=== PATIENT | female | born 1930 | race Caucasian/White ===

== ENCOUNTER 2017-03-11 12:19 | Inpatient (IN) | payer OTHER ==
[~2017-03-11] VITALS: Ht 152.4 cm; Wt 73.6 kg
[~2017-03-11 12:19] MED LIST: ADVIL200 MG PO; Flagyl PO; HYDROCHLOROTHIA25 MG PO; IMMUNOGLOBULIN IV; REQUIP1 MG PO; TYLENOL325 M1 PO; ULTRAM50 MG PO; [UNRECOGNIZED DRUG - OTHER]
[2017-03-11 13:24] LABS: BASOPHIL COUNT 0.1 K/uL (0-0.1); EOSINOPHIL (%) 0 % (0-5); HEMATOCRIT 39.6 % (36.0-46.0); IMMATURE GRANULOCYTE COUNT 0.7 K/uL; INSTRUMENT ABS NEUTROPHIL CT 18.9 K/uL; LYMPHOCYTE COUNT 1.1 K/uL (1.0-2.8); MCH 28.4 PG (29.0-34.0); MCHC 32.3 G/DL (30.0-36.0); MCV 87.8 FL (83-99); MEAN PLAT.VOLUME 9.3 uM^3 (9.5-12.4); MONOCYTE (%) 9.5 % (3-12); MONOCYTE COUNT 2.2 K/uL (0-0.8); NEUTROPHIL (%) 82.6 % (45-76); NEUTROPHIL COUNT 18.9 K/uL (1.8-6.4); PLATELET COUNT 388 K/uL (156-360); RBC DIS.WIDTH-CV 13.4 % (11.8-14.6); RED BLOOD COUNT 4.51 M/uL (3.80-5.20); WHITE BLOOD COUNT 22.8 K/uL (4.1-10.2)
[2017-03-11 13:34] LABS: CHLORIDE 106 mEq/L (99-109); MAGNESIUM 1.6 mg/dL (1.3-2.7); POTASSIUM 4.6 mEq/L (3.7-5.4); SODIUM 141 mEq/L (136-147)
[2017-03-11 13:36] LABS: GLUCOSE 163 mg/dL (70-99)
[2017-03-11 13:37] LABS: ANION GAP 8 MEQ/L (2-14)
[2017-03-11 13:38] LABS: TOTAL BILIRUBIN 0.7 mg/dL (0.0-1.0)
[2017-03-11 13:39] LABS: ALKALINE PHOSPHATASE 115 IU/L (3-129)
[2017-03-11 13:40] LABS: GFR ESTIMATE (CALCULATED) > 59 mL/min/
[2017-03-11 13:41] LABS: UREA NITROGEN (BUN) 26 mg/dL (9-23)
[2017-03-11 13:44] LABS: TROP-I INTERPRETATION NEGATIVE; TROPONIN-I < 0.01 ng/mL (0.0-0.30)
[2017-03-11 15:06] LABS: ADD MIUA? YES; BILIRUBIN NEGATIVE; BLOOD NEGATIVE; COLOR AMBER ((YELLOW)); GLUCOSE (STRIP) NEGATIVE; KETONES NEGATIVE; LEUKOCYTES NEGATIVE; NITRITE NEGATIVE; PROTEIN (STRIP) 30; SPECIFIC GRAVITY 1.023 (1.000-1.030)
[2017-03-11 15:29] LABS: BACTERIA NONE SEEN /HPF; EPITHELIAL CELLS RARE /HPF; MUCUS TRACE /LPF; RED BLOOD CELLS 0-5 /HPF (0-5); UCUL ADDED? NO; WHITE BLOOD CELLS 0-5 /HPF (0-5)
[2017-03-11 19:45] VITALS: BP 168/88
[2017-03-12] VITALS (7 sets, daily range): BP systolic 120–166; BP diastolic 60–88
[2017-03-12 06:19] LABS: HEMATOCRIT 33.1 % (36.0-46.0); MCH 29.4 PG (29.0-34.0); MCHC 33.2 G/DL (30.0-36.0); MCV 88.5 FL (83-99); MEAN PLAT.VOLUME 9.6 uM^3 (9.5-12.4); PLATELET COUNT 331 K/uL (156-360); RBC DIS.WIDTH-CV 13.6 % (11.8-14.6); RBC DIS.WIDTH-SD 43.8 % (39-53); RED BLOOD COUNT 3.74 M/uL (3.80-5.20); WHITE BLOOD COUNT 19.4 K/uL (4.1-10.2)
[2017-03-12 06:42] LABS: ANION GAP 8 MEQ/L (2-14); CHLORIDE 111 MEQ/L (99-109); GFR ESTIMATE (CALCULATED) > 59 mL/min/; SAMPLE HEMOLYSIS CHECK 0; SAMPLE ICTERIC CHECK 0; SAMPLE LIPEMIA CHECK 0; SODIUM 144 MEQ/L (136-147); UREA NITROGEN (BUN) 20 mg/dL (9-23)
[2017-03-12 06:44] LABS: GLUCOSE 110 mg/dL (70-99)
[2017-03-13 03:52] VITALS: BP 123/73
[2017-03-13 06:22] LABS: HEMATOCRIT 32.5 % (36.0-46.0); MCH 28.7 PG (29.0-34.0); MCHC 32.3 G/DL (30.0-36.0); MCV 88.8 FL (83-99); MEAN PLAT.VOLUME 9.6 uM^3 (9.5-12.4); PLATELET COUNT 358 K/uL (156-360); RBC DIS.WIDTH-CV 13.6 % (11.8-14.6); RBC DIS.WIDTH-SD 44.3 % (39-53); RED BLOOD COUNT 3.66 M/uL (3.80-5.20); WHITE BLOOD COUNT 17.3 K/uL (4.1-10.2)
[2017-03-13 06:50] LABS: ANION GAP 8 MEQ/L (2-14); CHLORIDE 115 MEQ/L (99-109); GFR ESTIMATE (CALCULATED) > 59 mL/min/; GLUCOSE 128 mg/dL (70-99); POTASSIUM 3.8 MEQ/L (3.7-5.4); SAMPLE HEMOLYSIS CHECK 0; SAMPLE ICTERIC CHECK 0; SAMPLE LIPEMIA CHECK 0; SODIUM 148 MEQ/L (136-147); UREA NITROGEN (BUN) 20 mg/dL (9-23)
[2017-03-13 07:24] VITALS: BP 140/82
[2017-03-13 11:15] VITALS: BP 129/63
[2017-03-13 15:20] VITALS: BP 125/80
[2017-03-13 20:08] VITALS: BP 117/55
[2017-03-14 00:02] VITALS: BP 130/82
[2017-03-14 03:59] VITALS: BP 157/76
[2017-03-14 06:32] LABS: BASOPHIL COUNT 0.1 K/uL (0-0.1); EOSINOPHIL (%) 1.4 % (0-5); EOSINOPHIL COUNT 0.2 K/uL (0-0.3); HEMATOCRIT 36.1 % (36.0-46.0); IMMATURE GRANULOCYTE COUNT 0.7 K/uL; INSTRUMENT ABS NEUTROPHIL CT 12.8 K/uL; LYMPHOCYTE COUNT 1.8 K/uL (1.0-2.8); MCH 27.8 PG (29.0-34.0); MCHC 30.7 G/DL (30.0-36.0); MCV 90.3 FL (83-99); MEAN PLAT.VOLUME 9.3 uM^3 (9.5-12.4); MONOCYTE (%) 9.4 % (3-12); MONOCYTE COUNT 1.6 K/uL (0-0.8); NEUTROPHIL (%) 74.1 % (45-76); NEUTROPHIL COUNT 12.8 K/uL (1.8-6.4); PLATELET COUNT 354 K/uL (156-360); RBC DIS.WIDTH-CV 13.5 % (11.8-14.6); RBC DIS.WIDTH-SD 44.7 % (39-53); WHITE BLOOD COUNT 17.3 K/uL (4.1-10.2)
[2017-03-14 07:06] LABS: ANION GAP 10 MEQ/L (2-14); CHLORIDE 112 MEQ/L (99-109); GFR ESTIMATE (CALCULATED) > 59 mL/min/; POTASSIUM 3.7 MEQ/L (3.7-5.4); SAMPLE HEMOLYSIS CHECK 0; SAMPLE ICTERIC CHECK 0; SAMPLE LIPEMIA CHECK 0; SODIUM 146 MEQ/L (136-147); UREA NITROGEN (BUN) 17 mg/dL (9-23)
[2017-03-14 07:10] LABS: GLUCOSE 94 mg/dL (70-99)
[2017-03-14 07:29] LABS: METH RESISTANT S AUREUS PCR NEGATIVE (NEGATIVE)
[2017-03-14 07:36] LABS: PROBE CHECK PASS; SPECIMEN PROCESSING CONTROL PASS
[2017-03-14 08:08] VITALS: BP 142/86
[2017-03-14 11:36] LABS: MAGNESIUM 1.9 mg/dl (1.3-2.7)
[2017-03-14 12:00] VITALS: BP 132/68
[2017-03-14 15:53] VITALS: BP 128/90
[2017-03-14 20:09] VITALS: BP 134/74
[2017-03-15 00:06] VITALS: BP 140/64
[2017-03-15 08:10] LABS: BASOPHIL COUNT 0.1 K/uL (0-0.1); EOSINOPHIL COUNT 0.2 K/uL (0-0.3); HEMATOCRIT 40.4 % (36.0-46.0); IMMATURE GRANULOCYTE (%) 4.7 % (0.0-0.7); MCH 28.5 PG (29.0-34.0); MCHC 32.4 G/DL (30.0-36.0); MEAN PLAT.VOLUME 9.3 uM^3 (9.5-12.4); MONOCYTE (%) 10.8 % (3-12); MONOCYTE COUNT 2.3 K/uL (0-0.8); NEUTROPHIL (%) 73.8 % (45-76); PLATELET COUNT 370 K/uL (156-360); RBC DIS.WIDTH-CV 13.5 % (11.8-14.6); RBC DIS.WIDTH-SD 43.5 % (39-53); RED BLOOD COUNT 4.59 M/uL (3.80-5.20); WHITE BLOOD COUNT 21.6 K/uL (4.1-10.2)
[2017-03-15 08:19] VITALS: BP 142/88
[2017-03-15 12:17] VITALS: BP 150/71
[2017-03-15 16:00] VITALS: BP 144/88
[2017-03-15 20:39] VITALS: BP 144/88
[2017-03-15 23:30] VITALS: BP 115/64
[2017-03-16 03:31] VITALS: BP 123/61
[2017-03-16 07:05] LABS: BASOPHIL COUNT 0.1 K/uL (0-0.1); EOSINOPHIL (%) 1.1 % (0-5); EOSINOPHIL COUNT 0.2 K/uL (0-0.3); HEMATOCRIT 31.4 % (36.0-46.0); IMMATURE GRANULOCYTE (%) 4.2 % (0.0-0.7); IMMATURE GRANULOCYTE COUNT 0.9 K/uL; INSTRUMENT ABS NEUTROPHIL CT 15.2 K/uL; MCH 29.3 PG (29.0-34.0); MCHC 32.8 G/DL (30.0-36.0); MCV 89.5 FL (83-99); MEAN PLAT.VOLUME 9.6 uM^3 (9.5-12.4); MONOCYTE (%) 9.9 % (3-12); NEUTROPHIL (%) 74.5 % (45-76); NEUTROPHIL COUNT 15.2 K/uL (1.8-6.4); PLATELET COUNT 392 K/uL (156-360); RBC DIS.WIDTH-CV 13.9 % (11.8-14.6); RBC DIS.WIDTH-SD 44.5 % (39-53); WHITE BLOOD COUNT 20.4 K/uL (4.1-10.2)
[2017-03-16 07:12] LABS: RED BLOOD COUNT 3.51 M/uL (3.80-5.20)
[2017-03-16 08:12] VITALS: BP 156/75
[2017-03-16 15:58] VITALS: BP 125/66
[2017-03-16 23:55] VITALS: BP 129/70
[2017-03-17 08:06] VITALS: BP 167/77
[2017-03-17 08:47] LABS: BASOPHIL COUNT 0.1 K/uL (0-0.1); EOSINOPHIL (%) 1.1 % (0-5); EOSINOPHIL COUNT 0.3 K/uL (0-0.3); IMMATURE GRANULOCYTE (%) 4.5 % (0.0-0.7); IMMATURE GRANULOCYTE COUNT 1.1 K/uL; INSTRUMENT ABS NEUTROPHIL CT 17.5 K/uL; LYMPHOCYTE COUNT 2.4 K/uL (1.0-2.8); MCH 28.7 PG (29.0-34.0); MCHC 32.2 G/DL (30.0-36.0); MCV 89.4 FL (83-99); MEAN PLAT.VOLUME 9.4 uM^3 (9.5-12.4); MONOCYTE (%) 9.1 % (3-12); MONOCYTE COUNT 2.1 K/uL (0-0.8); NEUTROPHIL (%) 74.7 % (45-76); NEUTROPHIL COUNT 17.5 K/uL (1.8-6.4); PLATELET COUNT 472 K/uL (156-360); RBC DIS.WIDTH-CV 14.2 % (11.8-14.6); RBC DIS.WIDTH-SD 45.1 % (39-53); RED BLOOD COUNT 4.14 M/uL (3.80-5.20); WHITE BLOOD COUNT 23.4 K/uL (4.1-10.2)
[2017-03-17 09:11] LABS: ANION GAP 9 MEQ/L (2-14); CHLORIDE 108 MEQ/L (99-109); GFR ESTIMATE (CALCULATED) > 59 mL/min/; GLUCOSE 137 mg/dL (70-99); POTASSIUM 4.1 MEQ/L (3.7-5.4); SAMPLE HEMOLYSIS CHECK 0; SAMPLE ICTERIC CHECK 0; SAMPLE LIPEMIA CHECK 0; SODIUM 141 MEQ/L (136-147); UREA NITROGEN (BUN) 16 mg/dL (9-23)
[2017-03-17 16:39] VITALS: BP 129/63
[2017-03-18 00:10] VITALS: BP 173/86
[2017-03-18 08:28] VITALS: BP 116/62
[2017-03-18 12:30] LABS: HEMATOCRIT 30.2 % (36.0-46.0); MCH 29.2 PG (29.0-34.0); MCHC 32.5 G/DL (30.0-36.0); MCV 89.9 FL (83-99); MEAN PLAT.VOLUME 9.5 uM^3 (9.5-12.4); PLATELET COUNT 388 K/uL (156-360); RBC DIS.WIDTH-CV 14.6 % (11.8-14.6); RBC DIS.WIDTH-SD 45.9 % (39-53); RED BLOOD COUNT 3.36 M/uL (3.80-5.20); WHITE BLOOD COUNT 19.9 K/uL (4.1-10.2)
[2017-03-18 12:56] LABS: ANION GAP 8 MEQ/L (2-14); CHLORIDE 110 MEQ/L (99-109); GFR ESTIMATE (CALCULATED) > 59 mL/min/; GLUCOSE 155 mg/dL (70-99); POTASSIUM 3.9 MEQ/L (3.7-5.4); SAMPLE HEMOLYSIS CHECK 0; SAMPLE ICTERIC CHECK 0; SAMPLE LIPEMIA CHECK 0; SODIUM 142 MEQ/L (136-147); UREA NITROGEN (BUN) 17 mg/dL (9-23)
[2017-03-18 15:58] VITALS: BP 130/62
[2017-03-18 23:47] VITALS: BP 122/66
[2017-03-19 07:43] VITALS: BP 175/84
[2017-03-19 15:07] VITALS: BP 126/60
[2017-03-20 09:49] LABS: HEMATOCRIT 33.7 % (36.0-46.0); MCH 28.5 PG (29.0-34.0); MCHC 31.5 G/DL (30.0-36.0); MCV 90.6 FL (83-99); MEAN PLAT.VOLUME 9.3 uM^3 (9.5-12.4); PLATELET COUNT 446 K/uL (156-360); RBC DIS.WIDTH-SD 47.8 % (39-53); RED BLOOD COUNT 3.72 M/uL (3.80-5.20); WHITE BLOOD COUNT 20.5 K/uL (4.1-10.2)
[2017-03-20 10:14] LABS: ANION GAP 8 MEQ/L (2-14); CHLORIDE 109 MEQ/L (99-109); GFR ESTIMATE (CALCULATED) > 59 mL/min/; GLUCOSE 136 mg/dL (70-99); POTASSIUM 3.8 MEQ/L (3.7-5.4); SAMPLE HEMOLYSIS CHECK 0; SAMPLE ICTERIC CHECK 0; SAMPLE LIPEMIA CHECK 0; SODIUM 146 MEQ/L (136-147); UREA NITROGEN (BUN) 15 mg/dL (9-23)
[2017-03-20 16:16] VITALS: BP 130/66
[2017-03-21 00:05] VITALS: BP 168/79
[2017-03-21 07:08] LABS: HEMATOCRIT 31.4 % (36.0-46.0); MCH 29.3 PG (29.0-34.0); MCHC 32.2 G/DL (30.0-36.0); MEAN PLAT.VOLUME 9.8 uM^3 (9.5-12.4); PLATELET COUNT 433 K/uL (156-360); RBC DIS.WIDTH-CV 15.4 % (11.8-14.6); RBC DIS.WIDTH-SD 48.9 % (39-53); RED BLOOD COUNT 3.45 M/uL (3.80-5.20); WHITE BLOOD COUNT 19.2 K/uL (4.1-10.2)
[2017-03-21 07:33] LABS: ANION GAP 10 MEQ/L (2-14); C-REACTIVE PROTEIN 81.6 MG/L (0-10); CHLORIDE 111 MEQ/L (99-109); GFR ESTIMATE (CALCULATED) > 59 mL/min/; GLUCOSE 106 mg/dL (70-99); POTASSIUM 3.7 MEQ/L (3.7-5.4); SAMPLE HEMOLYSIS CHECK 0; SAMPLE ICTERIC CHECK 0; SAMPLE LIPEMIA CHECK 0; SODIUM 147 MEQ/L (136-147); UREA NITROGEN (BUN) 17 mg/dL (9-23)
[2017-03-21 08:02] VITALS: BP 142/79
[2017-03-21 08:06] LABS: ERTH.SED.RATE 30 MM/HR (0-30)
[2017-03-21 16:29] VITALS: BP 138/78
[2017-03-21 23:33] VITALS: BP 155/94
[2017-03-22 08:16] VITALS: BP 123/68
[2017-03-22 10:43] LABS: HEMATOCRIT 35.1 % (36.0-46.0); MCH 29.6 PG (29.0-34.0); MCHC 31.9 G/DL (30.0-36.0); MCV 92.6 FL (83-99); MEAN PLAT.VOLUME 9.7 uM^3 (9.5-12.4); PLATELET COUNT 482 K/uL (156-360); RBC DIS.WIDTH-CV 15.9 % (11.8-14.6); RBC DIS.WIDTH-SD 50.8 % (39-53); RED BLOOD COUNT 3.79 M/uL (3.80-5.20); WHITE BLOOD COUNT 19.1 K/uL (4.1-10.2)
[2017-03-22 15:12] VITALS: BP 118/62
[2017-03-22 19:41] VITALS: BP 103/50
[2017-03-22 23:00] VITALS: BP 125/59
[2017-03-23 06:16] LABS: HEMATOCRIT 30.8 % (36.0-46.0); MCH 28.8 PG (29.0-34.0); MCHC 31.5 G/DL (30.0-36.0); MCV 91.4 FL (83-99); MEAN PLAT.VOLUME 9.5 uM^3 (9.5-12.4); PLATELET COUNT 429 K/uL (156-360); RBC DIS.WIDTH-CV 15.9 % (11.8-14.6); RBC DIS.WIDTH-SD 50.9 % (39-53); RED BLOOD COUNT 3.37 M/uL (3.80-5.20); WHITE BLOOD COUNT 16.6 K/uL (4.1-10.2)
[2017-03-23 07:56] VITALS: BP 132/74
[2017-03-23 15:18] VITALS: BP 118/69
[2017-03-23 23:32] VITALS: BP 112/68
[2017-03-24 08:40] VITALS: BP 144/76
[2017-03-24] MEDS ORDERED: FUROSEMIDE20 MG PO (09:30)
[2017-03-24] MEDS ORDERED: ZOSYN 3.3753.375 GM IV (09:31)
[2017-03-24 09:38] LABS: HEMATOCRIT 34.3 % (36.0-46.0); MCH 29.4 PG (29.0-34.0); MCHC 31.8 G/DL (30.0-36.0); MCV 92.5 FL (83-99); MEAN PLAT.VOLUME 9.2 uM^3 (9.5-12.4); PLATELET COUNT 431 K/uL (156-360); RBC DIS.WIDTH-CV 15.9 % (11.8-14.6); RBC DIS.WIDTH-SD 51.2 % (39-53); RED BLOOD COUNT 3.71 M/uL (3.80-5.20); WHITE BLOOD COUNT 15.5 K/uL (4.1-10.2)
[2017-03-24 15:09] VITALS: BP 126/69
[2017-03-24 23:53] VITALS: BP 122/72
[2017-03-25 07:42] VITALS: BP 146/80
[2017-03-25 14:28] VITALS: BP 119/63
[2017-03-25 23:38] VITALS: BP 117/68
[2017-03-26 06:12] LABS: HEMATOCRIT 32.5 % (36.0-46.0); MCH 28.7 PG (29.0-34.0); MCHC 31.1 G/DL (30.0-36.0); MCV 92.3 FL (83-99); PLATELET COUNT 331 K/uL (156-360); RBC DIS.WIDTH-CV 16.2 % (11.8-14.6); RBC DIS.WIDTH-SD 53.1 % (39-53); RED BLOOD COUNT 3.52 M/uL (3.80-5.20); WHITE BLOOD COUNT 13.3 K/uL (4.1-10.2)
[2017-03-26 07:58] VITALS: BP 148/88
[2017-03-26 11:29] VITALS: BP 144/91
[2017-03-26 16:21] VITALS: BP 138/69
[2017-03-27 00:19] VITALS: BP 115/56
[2017-03-27] MEDS ORDERED: ZOSYN 3.3753.375 GM IV (09:18)
== END 2017-03-27 12:05 | DRG 871 ==
LOC: EME 12:19 → EDOF 16:40 → 5SOUTH 16:40
PROVIDERS: Emergency Medicine; Hospitalist; Internal Medicine; Nurse Practitioner Adult Health; Physician Assistant
PROC: 0HD6XZZ Extraction of Back Skin, External Approach (ICD-10-PCS; principal; 2017-03-11)
DX: A41.52 Sepsis due to Pseudomonas (principal); L89.314 Pressure ulcer of right buttock, stage 4; S72.002A Fracture of unspecified part of neck of left femur, initial encounter for closed fracture; N17.9 Acute kidney failure, unspecified; E46 Unspecified protein-calorie malnutrition; J81.1 Chronic pulmonary edema; E87.0 Hyperosmolality and hypernatremia; L03.317 Cellulitis of buttock; L89.159 Pressure ulcer of sacral region, unspecified stage; G61.81 Chronic inflammatory demyelinating polyneuritis; I47.2 Ventricular tachycardia; F02.81 Dementia in other diseases classified elsewhere, unspecified severity, with behavioral disturbance; R47.01 Aphasia; E87.2 Acidosis; R65.20 Severe sepsis without septic shock; E86.0 Dehydration; I11.9 Hypertensive heart disease without heart failure; Z80.0 Family history of malignant neoplasm of digestive organs; G30.1 Alzheimer's disease with late onset; R26.2 Difficulty in walking, not elsewhere classified; J44.9 Chronic obstructive pulmonary disease, unspecified; R29.810 Facial weakness; M16.11 Unilateral primary osteoarthritis, right hip; R01.1 Cardiac murmur, unspecified; Z74.01 Bed confinement status; M71.20 Synovial cyst of popliteal space [Baker], unspecified knee; I25.10 Atherosclerotic heart disease of native coronary artery without angina pectoris; L89.612 Pressure ulcer of right heel, stage 2; L89.322 Pressure ulcer of left buttock, stage 2; R13.10 Dysphagia, unspecified
CPT/HCPCS: 70450; 71010; 73522; 74230; 76937; 80048; 80053; 80202; 81003; 83605; 83735; 84484; 85025; 85027; 85651; 86140; 87040; 87070; 87075; 87077; 87106; 87186; 87205; 87641; 92526 GN; 92610 GN; 93005; 93970; 99281; 99285; C1753; C1894; J1650; J1940; J2543; J3370; J7030; J7050; J7070